=== PATIENT | female | born 1990 | race Caucasian/White ===

== ENCOUNTER 2019-04-27 14:46 | Emergency (ER) | payer MEDICAID ==
[~2019-04-27] VITALS: Ht 152.4 cm; Wt 87.1 kg
[2019-04-27 14:56] VITALS: BP 122/83; Ht 152.4 cm; Wt 87.1 kg
== END 2019-04-27 17:25 | disposition home or self-care (01) ==
LOC: ED 14:46
DX: K42.9 Umbilical hernia without obstruction or gangrene (principal)

== ENCOUNTER → 2019-05-20 | Outpatient (CLI) | payer MEDICAID | END | disposition home or self-care (01) | LOC: US 10:00 | PROC: BW40ZZZ Ultrasonography of Abdomen (ICD-10-PCS; principal; 2019-05-20) | DX: R22.2 Localized swelling, mass and lump, trunk (principal); K42.9 Umbilical hernia without obstruction or gangrene ==

== ENCOUNTER 2019-08-11 16:39 | Emergency (ER) | payer OTHER ==
[~2019-08-11] VITALS: Ht 152.4 cm; Wt 90.7 kg
[2019-08-11 17:02] VITALS: Ht 152.4 cm; Wt 90.7 kg
[2019-08-11 18:53] VITALS: BP 120/75
== END 2019-08-11 18:53 | disposition home or self-care (01) ==
LOC: ED 16:39
DX: M79.671 Pain in right foot (principal)